=== PATIENT | female | born 1980 | race Caucasian/White ===

== ENCOUNTER 2024-09-28 18:21 | Emergency (ER) | payer OTHER, SELFPAY ==
[2024-09-28] VITALS (7 sets, daily range): BP systolic 110–130; BP diastolic 68–90; PULSE 78–100; RESP 18–29; TEMP 37.2–38.6; O2SAT 95–100; BMI 34.3
--- NOTE | 2024-09-28 19:10 | EDS_ITS ---
HPI History of Present Illness Chief Complaint: General Illness Informant: patient Onset/Context/Timing Onset: Days (4) Context: Gradual Onset Timing: Continuous Quality: Sharp Location: Left neck, shoulder, and left chest Worsened by: Nothing Relieved by: Laying down with her eyes closed Narrative Narrative: Patient presents with fever, left neck, left shoulder, left side pain that has been getting worse over the past 4 days. Patient states it is gradually getting worse. Patient describes the pain as sharp. Patient states it starts in the left side of her neck and goes into her left shoulder and left axillary area. Patient does admit to a mild cough. Patient states her temperature at home was 102.8. Patient denies any sputum production. Patient denies any chest pain. Patient does admit to some nausea but denies any vomiting. Patient admits to some urinary frequency. Patient also admits to a headache. [facility] Medical History (Updated 09/28/24 @ 21:[address] Russell Mccarthy DO) Vaginal delivery Ruptured ear drum Home Medications ?Medication ?Instructions ?Recorded ?Last Taken ?Type azithromycin 250 mg tablet 250 mg PO DAILY #4 TABLETS 09/28/24 Unknown Rx Allergy/AdvReac Type Severity Reaction Status Date / Time flaxseed Allergy Severe Angioedema Verified 09/28/24 18:22 Surgical History (Updated 09/28/24 @ 19:[address] Russell Mccarthy DO) History of tympanoplasty Social History Smoking Status: Never smoker [facility] ED Constitutional Constitutional ED: Reports fever(s); Denies chills Eyes Eyes: Denies blurry vision or change in vision ENT ENT ED: Denies rhinorrhea or sore throat Cardiovascular Cardiovascular: Denies chest pain or palpitations Respiratory/Chest Respiratory/Chest: Reports cough; Denies dyspnea Gastrointestinal Gastrointestinal: Reports nausea; Denies vomiting Genitourinary Genitourinary ED: Reports urinary frequency; Denies dysuria or hematuria Musculoskeletal Musculoskeletal: Reports back pain and neck pain Integumentary Denies abscess or rash Neurologic Neurologic: Reports headache(s); Denies weakness Allergic/Immunologic Allergic/Immunologic ED: Denies mouth swelling or urticaria EXAM Physical Exam Const Vital Signs: 09/28/24 18:22 09/28/24 18:22 09/28/24 18:24 Temperature 101.4 F H 101.3 F H Temperature Source Oral Oral Pulse Rate 100 90 Respiratory Rate 18 18 Respiratory Effort Normal Non-Labored Respiratory Pattern Normal Blood Pressure 130/90 H 130/90 H Blood Pressure Mean 103 103 Pulse Ox 95 98 Oxygen Delivery Method Room Air Room Air 09/28/24 19:24 09/28/24 20:00 09/28/24 20:32 Temperature 101.3 F H 101.3 F H 99 F Temperature Source Oral Oral Oral Pulse Rate 90 83 82 Respiratory Rate 18 29 H 21 H Respiratory Effort Respiratory Pattern Blood Pressure 130/90 H 120/71 120/71 Blood Pressure Mean 103 87 87 Pulse Ox 98 95 97 Oxygen Delivery Method Room Air Room Air Room Air 09/28/24 21:00 09/28/24 21:13 Temperature 99 F 99 F Temperature Source Oral Pulse Rate 78 81 Respiratory Rate 26 H 28 H Respiratory Effort Respiratory Pattern Blood Pressure 110/69 110/68 Blood Pressure Mean 82 82 Pulse Ox 100 97 Oxygen Delivery Method Room Air Positive well nourished and well developed Constitutional Narrative: BMI is 34.4 General Appearance ED: well developed and NAD HEENT Reports moist mucous membranes Neck supple and no JVD Neck Narrative: Patient is able to bend her chin all the way to her chest without pain. Patient states it pulls over the left trapezius area when she does this. Patient is able to turn her head [id number] without any pain. Resp normal respiratory effort and clear to auscultation bilaterally Cardio regular rate and regular rhythm GI non-tender and non-distended Palpation: soft Back/Spine Back/Spine Narrative: There is mild tenderness over the left cervical paraspinal muscles. There is no bony crepitance or step-off. There is good range of motion. Extremity normal to inspection Neuro oriented x3, CN's II-XII intact bilaterally and no sensory deficits noted Sensorium / Orientation: alert Motor Exam: strength 5/5 throughout Psych mental status grossly normal MDM MDM MDM Narrative Medical decision making narrative: Differential diagnosis includes pneumonia, bronchitis, viral illness, urinary tract infection, and . CBC will be obtained to assess for leukocytosis and anemia. Comprehensive metabolic profile will be obtained to assess for hepatic function, renal function, and electrolyte abnormality. Urinalysis will be obtained to assess for urinary tract infection and hematuria. Serum hCG will be obtained to assess for . COVID-19, influenza, and RSV PCR will be obtained to assess for viral illness. Chest x-ray will be obtained to assess for pneumonia and bronchitis. History & Record Review Additional record(s) reviewed:: No prior records Lab Data Attestation: I reviewed the patient's lab results. Lab results narrative: CBC was reviewed. There is a slight anemia with hemoglobin of 11.8 and hematocrit of 34.3. Comprehensive metabolic profile was reviewed. Sodium was slightly low at 129 and chloride was 94. The remainder was within normal limits. Serum hCG was reviewed and was negative. Urinalysis was reviewed. Urine ketones were 150. Occult blood was 250 with 5-10 red blood cells. There is no evidence of urinary tract infection. Labs: Laboratory Results - last 24 hr 09/28/24 09/28/24 19:37 20:00 WBC 11.0 RBC 4.02 L Hgb 11.8 L Hct 34.3 L MCV 85.3 MCH 29.4 MCHC 34.4 RDW Std Deviation 39.5 RDW Coeff of Fuentes 12.6 Plt Count 246 MPV 9.7 Immature Gran % (Auto) 0.600 Neut % (Auto) 87.2 H Lymph % (Auto) 5.6 L [place] % (Auto) 6.4 Eos % (Auto) 0.0 Baso % (Auto) 0.2 Absolute Neuts (auto) 9.6 H Absolute Lymphs (auto) 0.61 L Nucleated RBC % 0 Sodium 129 L Potassium 3.5 Chloride 94 L Carbon Dioxide 23.0 Anion Gap 13 BUN 6 Creatinine 0.71 Estim Creat Clear Calc 112.66 Est GFR (MDRD) Non-Af 109 BUN/Creatinine Ratio 8.9 L Glucose 117 H Calcium 8.7 Total Bilirubin 0.49 AST 21 ALT 28 Alkaline Phosphatase 19 L Total Protein 7.1 Albumin 3.8 Globulin 3.4 Albumin/Globulin Ratio 1.1 Serum , Qual NEGATIVE Urine Color Yellow Urine Clarity Clear Urine pH 6.0 Ur Specific [place] 1.010 Urine Protein 100 H Urine Glucose (UA) Normal Urine Ketones 150 A* Urine Occult Blood 250 H Urine Nitrite Negative Urine Bilirubin Negative Urine Urobilinogen 1 H Ur Leukocyte Esterase Negative Urine RBC 5-10 SEEN Urine WBC 0-5 SEEN Ur Squamous Epith Cells 0-5 SEEN Amorphous Sediment 1+ Urine Bacteria 1+ Urine Mucus 0 SEEN Radiography Chest X-Ray - ED: 2 View, Read by ED Physician, Read by Radiologist and Left Infiltrate Diagnostic Testing: Clinical Impression(s) from Imaging Studies Chest X-Ray 09/28/24 19:43 IMPRESSION: Focal opacity within the lingula, consistent with infection. Reading Location: [facility] PA and lateral chest x-ray was obtained. There are 2 views. On my independent interpretation, lung merchant show a lingular infiltrate. There is normal cardiac silhouette. Bony thorax is normal. Radiologist also interpreted the x-ray and agrees. Treatment and Re-Evaluation :: Patient was given IV fluids and Tylenol. Patient was feeling better on reevaluation. Patient was advised of her findings. Patient was given a dose of Zithromax here. Patient was given a prescription for Zithromax. Patient was instructed to drink plenty of fluids. Patient was instructed to take Tylenol or ibuprofen as needed for pain. Patient understood and was agreeable with the plan. All questions were answered. Discharge Plan Triage Chief Complaint: General Illness ED Provider: Russell Mccarthy Dx/Rx/DC Orders Clinical Impression: Pneumonia, Fever Instructions: ED Fever Control (Adult), ED Pneumonia (Adult) Prescriptions: New azithromycin 250 mg tablet 250 mg PO DAILY Qty: 4 0RF Primary Care Provider: Sarah Johnson NP Referrals: Care Physician,No Primary [Non-Staff] - Sarah Johnson SENIOR TECHNICAL SUPPORT ANALYST, SENIOR TECHNICAL SUPPORT ANALYST-C [Primary Care Provider] - 5-7 Days Print Language: [place]an Disposition Disposition: Home, Self Care Discharge Date/Time: 09/28/24 21:19
[2024-09-28] MEDS: 0.9% Normal Saline (1000mL) 1,000 ML 1000 ML IV (19:32)
[2024-09-28] MEDS: Acetaminophen 500 MG Tablet 1000 MG PO (19:32)
--- NOTE | 2024-09-28 19:43 | RAD_ITS ---
PROCEDURE: CHEST PA AND LATERAL 09/28/2024 REASON FOR EXAM: FEVER TECHNIQUE: Frontal and lateral views of the chest. COMPARISON: None FINDINGS: Hardware: None Heart: The heart size is normal. Mediastinum: The mediastinal contour is unremarkable. Lungs: Focal opacity within the lingula, consistent with infection. Right lung is unremarkable. No pneumothorax. Bones: The bones are unremarkable. RAD/Chest PA and Lateral IMPRESSION: Focal opacity within the lingula, consistent with infection. Reading Location: [id number]
[2024-09-28 19:46] LABS: Absolute Lymphocyte Count 0.61 X10^3/uL (0.83-4.51); Absolute Neutrophil Count 9.6 X10^3/uL (2.0-7.7); Basophil# 0.02 X10^3/uL; Basophil% 0.2 % (0-1); Hematocrit 34.3 % (37-47); Hemoglobin 11.8 g/dL (12.0-15.0); Lymphocyte # 0.61 X10^3/ul (0.83-4.51); Lymphocyte % 5.6 % (19-41); Mean Corp Hgb Conc 34.4 g/dL (32-36); Mean Corpuscular Hgb 29.4 pg (27.0-32.0); Mean Corpuscular Volume 85.3 fL (81-99); Mean Platelet Vol. 9.7 fl (6.2-12.0); Monocyte% 6.4 % (0-10); NRBC Flagged by Analyzer 0 % (0-5); Neutrophil # 9.57 X10^3/uL (2.7-7.7); Neutrophil % 87.2 % (47-70); Platelet Count 246 K/mm3 (150-450); RBC Distribution Width CV 12.6 % (11.6-14.6); RBC Distribution Width SD 39.5 fl (35.1-43.9); Red Blood Count 4.02 M/mm3 (4.2-5.4)
[2024-09-28 20:07] LABS: Mucous, Urine 0 SEEN /hpf (<or=2+)
[2024-09-28 20:07] LABS: Internal QC Validated? YES +Cl - CLEAR BKGD; Pregnancy, Serum, hCG Quali. NEGATIVE Negative
[2024-09-28 20:11] LABS: Color, Urine Yellow (Yellow); Glucose, Dipstick Normal (Normal); Leukocyte Esterase-Dipstick Negative /ul (Negative); Nitrite-Dipstick Negative (Negative); Occult Blood-Urine 250 /ul (Negative); Protein-Dipstick 100 mg/dl (Negative); Urine Bilirubin Dipstick Negative (Negative); Urine Clarity Clear (Clear); Urine Urobilinogen 1 mg/dl (Normal)
[2024-09-28 20:13] LABS: ALB/GLOB Ratio 1.1 RATIO (0.9-2.4); AST(SGOT) 21 U/L (<=31); Alanine Aminotransfer ALT/SGPT 28 U/L (<=34); Albumin, Serum 3.8 g/dL (3.5-5.0); Alkaline Phosphatase 19 U/L (35-104); Anion Gap 13 (5-15); BUN 6 mg/dL (4-19); BUN/Creat Ratio 8.9 RATIO (10-20); Calcium,Total 8.7 mg/dL (7.6-11.0); Chloride 94 mmol/L (98-108); Creatinine, Serum 0.71 mg/dL (0.70-1.20); EST Glomerular Filtration Rate 109 (>60); Estimated Creatinine Clearance 112.66 ml/min (50-250); Globulin 3.4 g/dL (2.2-4.2); Glucose 117 mg/dL (70-99); Potassium 3.5 mmol/L (3.3-5.1); Protein, Total 7.1 g/dL (5.9-8.4); Sodium Level 129 mmol/L (133-145); Total Bilirubin 0.49 mg/dL (0.00-1.30)
[2024-09-28 20:17] LABS: Ketone-Dipstick 150 mg/dl (Negative)
[2024-09-28 20:23] LABS: Amorphous Sediment 1+; Bacteria 1+ /hpf (None Seen); Red Blood Cells-Urine 5-10 SEEN /hpf (0-5); Squamous Epithelial Cells - UA 0-5 SEEN /hpf (5-10); White Blood Cells 0-5 SEEN /hpf (0-5)
[2024-09-28] MEDS: Azithromycin 250 MG Tablet 500 MG PO (21:18)
== END 2024-09-28 21:19 | disposition home or self-care (01) ==
PROVIDERS: Emergency Provider Emergency Medicine; PCP Nurse Practitioner Family; Visit Provider Emergency Medicine
DX: J18.9 Pneumonia, unspecified organism (principal); R50.9 Fever, unspecified
CPT/HCPCS: 71046; 80053; 81001; 84703; 85025; 87631; 96360; 96361; 99283; A4216